=== PATIENT | female | born 1975 | race Caucasian/White ===

== ENCOUNTER 2024-11-03 11:28 | Outpatient (CLI) | payer OTHER, SELFPAY ==
--- NOTE | 2024-11-03 | DI.RAD_ITS ---
Exam(s) XR THUMB RT EXAM: XR THUMB RT CLINICAL HISTORY: pain of right thumb ICD 10: M79.644 pain in right fingers. TECHNIQUE: 2D digital imaging was performed. Three views. COMPARISON: No exams were available for comparison FINDINGS: BONES: No acute fracture is present. There is a question of a faint lucency in the base of the dista l phalanx. There is no remodeling or expansion of the bone. There is no distal truck jordan visible. JOINTS: No dislocation present. SOFT TISSUE: Normal. IMPRESSION: Questionable area of lucency in the base of the distal phalanx of the thumb. DATA REPOSITORY: RADIATION DOSE DELIVERED:
--- NOTE | 2024-11-03 12:18 | DI.VRAD_ITS ---
PROCEDURE INFORMATION: Exam: XR Right Finger(s) Exam date and time: 11/03/2024 11:41 AM Age: 49 years old Clinical indication: Other: Right thumb pain TECHNIQUE: Imaging protocol: Radiologic exam of the right fingers. Views: Minimum 2 views. COMPARISON: No relevant prior studies available. FINDINGS: Bones/joints: No acute bony fracture or dislocation of the right thumb identified. There is a subtle focus of low-density in the medullary cavity of the distal phalanx of the thumb. This is nonspecific. There is no expansion of the bone or remodeling of the bone as may be seen with an epidermoid or enchondroma. The 1st metacarpal bone and the proximal phalanx are unremarkable. Soft tissues: No soft tissue gas or foreign body. IMPRESSION: 1. No acute fracture or dislocation. 2. Subtle focus of decreased density in the medullary cavity of the base of the distal phalanx. This is nonspecific. If there is no history of trauma and the distal phalanx is the area of concern then further evaluation with an MRI scan may be helpful. Dictated and Authenticated by: Yahir Garcia MD. Orderin PAM ALEXANDRA MD
== END 2024-11-03 11:48 ==
PROVIDERS: PCP Family Medicine; Visit Provider Nurse Practitioner Family
DX: M79.644 Pain in right finger(s) (principal)
CPT/HCPCS: 73140